=== PATIENT | female | born 1970 | race Caucasian/White ===

== ENCOUNTER 2023-12-26 06:13 | Day surgery (SDC) | payer OTHER, SELFPAY ==
[2023-12-22 08:05] VITALS: BMI 25.1
[2023-12-22 08:58] LABS: Hematocrit 41.7 % (37.0-47.0); Hemoglobin 14.2 g/dL (12.0-16.0); Mean Corp Hgb Conc. 34.1 g/dL (33.0-37.0); Mean Corpuscular Hgb 30.3 pg (27.0-31.0); Mean Corpuscular Volume 89.1 fL (81.0-99.0); Mean Platelet Volume 10.1 fL (7.4-10.4); Platelet Count 236 10^3/uL (130-400); Red Blood Cell Count 4.68 10^6/uL (4.20-5.40); Red Cell Dist. Width 13.4 % (11.5-14.5); White Blood Cell Count 4.5 10^3/uL (4.8-10.8)
[2023-12-22 09:12] LABS: ALT (SGPT) 27 U/L (0-35); AST (SGOT) 38 U/L (14-36); Albumin 4.2 g/dl (3.5-5.0); Alkaline Phosphatase 59 U/L (38-126); Blood Urea Nitrogen 20 mg/dl (7-17); Calcium 10.6 mg/dl (8.4-10.2); Carbon Dioxide 30 mmol/L (22-30); Chloride 101 mmol/L (98-107); Estimated Creatinine Clearance 87 ml/min; Glucose 108 mg/dl (70-99); Potassium 4.3 mmol/L (3.5-5.1); Sodium 139 mmol/L (135-145); Total Bilirubin 0.6 mg/dl (0.2-1.3); eGFR > 60.00
[2023-12-22 09:13] LABS: INR 1.02; PT 13.2 Sec (11.4-14.6)
[2023-12-22 09:14] LABS: APTT 27.6 Sec (23.4-35.0)
[2023-12-26] VITALS (10 sets, daily range): BP systolic 122–162; BP diastolic 70–86; BMI 25.1
[2023-12-26] MEDS: TYLENOL 1000 MG PO (06:56)
[2023-12-26] MEDS: NEURONTIN 300 MG PO (06:56)
[2023-12-26] MEDS: HEPARIN 5000 UNITS SC (06:56)
[2023-12-26] MEDS: NORMOSOL-R 1000 IV (06:56)
[2023-12-26 09:08] LABS: Turbo PTH 131.3 pg/ml (13.6-85.8)
[2023-12-26 09:49] LABS: Turbo PTH 30.1 pg/ml (13.6-85.8)
--- NOTE | 2023-12-26 10:23 | OR.RPT ---
Operative Report
Operative Report
DATE OF OPERATION: December 26, 2023
PREOPERATIVE DIAGNOSIS: Hyperparathyroidism - E210 & Right Thyroid Nodule - E041
POSTOPERATIVE DIAGNOSIS: Same
SURGEON: Alexander Weston M.D.
OPERATION: Right thyroidectomy & limited neck dissection � 98124
�������������������Left Superior Parathyroidectomy � 02416
�������������������Autotransplant of the right inferior parathyroid gland in the right SCM muscles
ANESTHESIA: GET
ESTIMATED BLOOD LOSS: 3 cc
DRAINS: None
SPECIMEN: right total thyroid lobe and isthmus and level paratracheal tissue, and left lower and upper neck nodules
FINDINGS: Left superior parathyroid adenoma
COMPLICATIONS:�None
PROCEDURE:
The patient was taken to the operating room and placed in the usual supine position. After adequate general endotracheal anesthesia was established, the patient�s neck was extended, prepped, and draped in the typical sterile fashion. A 5 cm
transcervical incision was made two fingerbreadths above the sternal notch. The skin incision was made with the #15 blade, which was taken through the skin into the subcutaneous tissue. The underlying platysma muscle was divided, and subplatysmal
flaps were created superiorly to the thyroid cartilage and inferiorly to the sternal notch. Strap muscles were identified and at the midline.
The attention was turned to the left side of the neck. The left thyroid lobe was mobilized medially. During this process, the left recurrent laryngeal nerve was identified and preserved throughout the surgery. The left upper and lower neck nodules
were identified and noted to be enlarged, excised, and sent to the pathology department, which showed a hypercellular superior parathyroid gland and a benign lymph node. The intraoperative PTH levels normalized.
Attention was turned to the patient�s right thyroid lobe. The right thyroid lobe was mobilized medially. During this process, the right middle thyroid vein and inferior thyroid artery were dissected and ligated with Ligasure. Next, the right
superior pole was taken down by dissecting and transecting the superior pole vessels with a Ligasure. The right thyroid lobe was mobilized medially. During this process, the right recurrent laryngeal nerve was identified and preserved throughout its
entire course. The right superior and inferior parathyroid glands were identified. The right superior gland was left situ and preserved. The right inferior parathyroid gland was stuck to the thyroid, which was excised, minced, and autotransplanted
in the right SCM muscle. The right thyroid lobe with isthmus was resected off the trachea and sent to the pathology department.
At this time, the right neck dissection was performed. The tissue between the right carotid artery to the trachea into the anterior mediastinum was carefully dissected. The previously identified recurrent laryngeal nerve and parathyroid glands were
preserved. The tissue was removed and sent to the pathology department.
After obtaining adequate hemostasis, the strap muscle was approximated with #3-0 Vicryl in a running fashion, and platysma muscles were reapproximated with #3-0 Vicryl in an interrupted fashion, and the skin was approximated with #4-0 Monocryl in a
running subcuticular fashion. Steri-strips and sterile dressings were placed. The patient tolerated the procedure well. The final instrument, needle, and sponge counts were correct.
== END 2023-12-26 12:27 | disposition home or self-care (01) ==
LOC: SDS 06:13
PROVIDERS: ATTENDING PHYSICIAN Surgery; FAMILY PHYSICIAN Physician Assistant Medical; OTHER PHYSICIAN Internal Medicine Endocrinology, Diabetes & Metabolism
DX: C73 Malignant neoplasm of thyroid gland (principal); C77.0 Secondary and unspecified malignant neoplasm of lymph nodes of head, face and neck; D35.1 Benign neoplasm of parathyroid gland; E21.0 Primary hyperparathyroidism; E04.1 Nontoxic single thyroid nodule
CPT/HCPCS: 60252; 60500; 88305; 88307; 88332; 36415; 80053; 83970; 85027; 85610; 85730; 88331; 93005

== ENCOUNTER → 2024-01-21 13:03 | Outpatient (REF) | payer OTHER, SELFPAY | LOC: MRI 3T 13:03 | PROVIDERS: ATTENDING PHYSICIAN Podiatrist; FAMILY PHYSICIAN Physician Assistant Medical | DX: S93.529D Sprain of metatarsophalangeal joint of unspecified toe(s), subsequent encounter (principal) | CPT/HCPCS: 73718 ==

== ENCOUNTER → 2024-01-23 12:23 | Outpatient (REF) | payer OTHER, SELFPAY | LOC: RAD 12:23 | PROVIDERS: ATTENDING PHYSICIAN Internal Medicine Endocrinology, Diabetes & Metabolism; FAMILY PHYSICIAN Physician Assistant Medical | DX: C73 Malignant neoplasm of thyroid gland (principal) | CPT/HCPCS: 70491; Q9967 ==

== ENCOUNTER → 2024-06-18 07:02 | Outpatient (REF) | payer OTHER, SELFPAY | LOC: WDC 07:02 | PROVIDERS: ATTENDING PHYSICIAN Obstetrics & Gynecology Gynecology; FAMILY PHYSICIAN Physician Assistant Medical | DX: Z01.419 Encounter for gynecological examination (general) (routine) without abnormal findings (principal); Z12.31 Encounter for screening mammogram for malignant neoplasm of breast | CPT/HCPCS: 77063; 77067 ==

== ENCOUNTER → 2024-09-10 07:35 | Outpatient (REF) | payer OTHER, SELFPAY | LOC: RAD 07:35 | PROVIDERS: ATTENDING PHYSICIAN Internal Medicine Endocrinology, Diabetes & Metabolism; FAMILY PHYSICIAN Physician Assistant Medical | DX: C73 Malignant neoplasm of thyroid gland (principal) | CPT/HCPCS: 76536 ==

== ENCOUNTER → 2025-06-30 16:49 | Outpatient (REF) | payer OTHER, SELFPAY | LOC: WDC 16:49 | PROVIDERS: ATTENDING PHYSICIAN Obstetrics & Gynecology Gynecology; FAMILY PHYSICIAN Physician Assistant Medical | DX: Z12.39 Encounter for other screening for malignant neoplasm of breast (principal); Z12.31 Encounter for screening mammogram for malignant neoplasm of breast | CPT/HCPCS: 77063; 77067 ==

== ENCOUNTER → 2025-10-03 17:16 | Outpatient (REF) | payer OTHER, SELFPAY | LOC: RAD 17:16 | PROVIDERS: ATTENDING PHYSICIAN Internal Medicine Endocrinology, Diabetes & Metabolism; FAMILY PHYSICIAN Physician Assistant Medical | DX: C73 Malignant neoplasm of thyroid gland (principal) | CPT/HCPCS: 76536 ==